=== PATIENT | female | born 1945 | race Caucasian/White ===

== ENCOUNTER 2017-05-26 15:34 | Emergency (ER) | payer MEDICARE ==
[~2017-05-26] VITALS: Ht 180.3 cm; Wt 100.0 kg
[~2017-05-26 15:34] MED LIST: ALPR.25 PO; FORT600S SQ; LORT5TAB PO; OXYC1SOL5 PO; PRAM0.25 PO; RIVA10 PO; ROSU10 PO; SERT-129 PO; TRAM50TA PO; VITA200017 PO; Z.0.COMMODE-3:1; Z.0.WALKERFRONT
[2017-05-26 15:41] VITALS: BP 172/77; PULSE 71; RESP 16; TEMP 97.7; O2SAT 95
[2017-05-26] MEDS ORDERED: ALPR.25 PO (15:54)
[2017-05-26] MEDS ORDERED: ZOLO100T PO (15:54)
[2017-05-26] MEDS ORDERED: TETANUS/DIPHTHERIA TOXOID ADULT 0.5 ML VIAL IM ONE (16:30)
--- NOTE | 2017-05-26 16:49 | PD ---
HPI . Injury to left hand Chief Complaint: Laceration/Skin Injury Time Seen by Provider: 15:55 Travel History International Travel<30 days: No Contact w/Intl Traveler<30days: No Traveled to known affect area: No History of Present Illness HPI 72-year-old female presents emergency department for evaluation of lacerations she sustained to her left hand with a table saw. The injuries occurred approximately 30 minutes prior to arrival. Patient is not sure she is up-to- date on her tetanus. Patient's tetanus will be updated at this time. Patient denies any fevers, chills, malaise, abdominal pain, lightheadedness, vomiting or diarrhea. Patient is otherwise healthy with no major medical history. Patient does not typically take any daily medications but is on amoxicillin following a dental procedure at this time. PFSH Past Medical History Anemia: Yes Blood Disorders: No Cancer: No Cardiovascular Problems: No Chemotherapy: No Diabetes: No Diminished Hearing: No Endocrine: No Gastrointestinal Disorders: No Genitourinary: No Hepatitis: No Hiatal Hernia: No Hypertension: No Immune Disorder: No Medical other: Yes (HIGH CHOLESTEROL) Musculoskeletal: Yes (ATHRITIS, LOWER BACK, LEFT HIP) Neurologic: No Psychiatric: Yes (ANXIETY, DEPRESSION) Reproductive: No Respiratory: No Radiation Therapy: No Thyroid Disease: No Tetanus Vaccination: > 5 Years ?: Not : 3 Para: 0 Miscarriage: 0 : 3 Tubal Ligation: Yes Past Surgical History Abdominal Surgery: No AICD: No Arteriovenous Shunt: No Body Medical Devices: NONE Cardiac Surgery: No Ear Surgery: No Endocrine Surgery: No Eye Surgery: Yes (RK ) Genitourinary Surgery: No Gynecologic Surgery: Yes (TUBAL) Insulin Pump: No Joint Replacement: No Neurologic Surgery: Yes (KYPHOPLASTY LUMBAR) Oral Surgery: No Pacemaker: No Thoracic Surgery: No Other Surgery: Yes (TUBAL LIGATION) Social History Alcohol Use: Yes (1 DRINK PER WEEK) Tobacco Use: No Substance Use: No Allergies-Medications (Allergen,Severity, Reaction): Coded Allergies: lidocaine (Unverified Allergy, Severe, PASS OUT, 05/26/17) ACTUAL ALLERGY NOVACAINE procaine (Unverified Allergy, Unknown, GENERIC FOR NOVOCAIN, 05/26/17) Uncoded Allergies: NOVOCAIN (Allergy, Mild, 05/07/06) Reported Meds & Prescriptions Reported Meds & Active Scripts Active Cephalexin 500 Mg Cap 500 Mg PO QID 5 Days Reported Zoloft (Sertraline HCl) 100 Mg Tab 100 Mg PO DAILY Xanax (Alprazolam) 0.25 Mg Tab 0.25 Mg PO HS PRN Review of Systems Except as stated in HPI: all other systems reviewed are Neg Physical Exam Narrative GENERAL: Well-nourished, well-developed 72-year-old female patient in no acute distress. SKIN: Avulsion wound to distal aspect of left third digit. A small laceration noted to lateral portion of the nail on the distal aspect of the fourth digit on the left hand. A small laceration noted to the lateral aspect of the nail on the distal aspect of the second digit on the left hand. HEAD: Normocephalic. Atraumatic EYES: No scleral icterus. No injection or drainage. NECK: Supple, trachea midline. No JVD or lymphadenopathy. CARDIOVASCULAR: Regular rate and rhythm without murmurs, gallops, or rubs. RESPIRATORY: Breath sounds equal bilaterally. No accessory muscle use. GASTROINTESTINAL: Abdomen soft, non-tender, nondistended. MUSCULOSKELETAL: No cyanosis, or edema. BACK: Nontender without obvious deformity. No CVA tenderness. Data Data Last Documented VS Vital Signs Date Time Temp Pulse Resp B/P (MAP) Pulse Ox O2 Delivery O2 Flow Rate FiO2 05/26/17 15:41 97.7 71 16 172/77 (108) 95 Orders Orders Tetanus/Diphtheria Tox Adult (Tetanus/Di (05/26/17 16:30) Hand, Complete ([id number]) (05/26/17 17:01) Wound Care (05/26/17 17:37) Support Splint (05/26/17 17:37) MDM Medical Decision Making Medical Screen Exam Complete: Yes Emergency Medical Condition: Yes Differential Diagnosis Differential diagnoses include but not limited to cellulitis, laceration repair , avulsion wound Narrative Course 72-year-old female presents emergency department for evaluation after sustaining an injury to her left hand from a table saw. Patient's hand will be soaked and irrigated. Patient's tetanus will be updated. X-ray right hand ordered and pending. X-ray shows possible subtle fracture on the third digit of the distal tuft. Skin on third digit of left hand is macerated at the distal portion. No definitive laceration is noted. Wound care will be performed to the wounds on left hand including avulsion wound on the third digit and the lacerations on the second and fourth digit. Based on patient's symptoms, clinical presentation, radiological results, vital sign review and physical exam it is not necessary to admit the patient to the hospital or keep the patient in the emergency department for further evaluation. Patient will be given a prescription for Keflex and discharged home with a finger splint on left third digit. Diagnosis Primary Impression: Laceration of right hand Qualified Codes: S61.411A - Laceration without foreign body of right hand, initial encounter Referrals: Hand Surgeon Orthopedist Patient Instructions: Acute Wound Care (GEN), Acute Wounds (ED), General Instructions Additional Instructions: Please return to emergency department if your symptoms return or worsen. Follow up with your primary care provider. Keep wound clean and dry. Follow-up with a hand specialist. Take medications as prescribed. Med/Other Pt SpecificInfo: Prescription(s) given Scripts Cephalexin (Cephalexin) 500 Mg Cap 500 MG PO QID for Infection for 5 Days, CAP 0 Refills Prov: Annette Barron 05/26/17 Disposition: DISCHARGE HOME Condition: Stable Annette Barron May 26, 2017 16:49
[2017-05-26] MEDS ORDERED: CEPH500C PO (17:33)
--- NOTE | 2017-05-26 17:33 | RADRPT ---
EXAM DATE/TIME: 05/26/2017 17:07 [facility] COMPARISON: No previous studies available for comparison. INDICATIONS : Laceration to right hand, 3rd and 4th digits. MEDICAL HISTORY : None. SURGICAL HISTORY : None. ENCOUNTER: Initial ACUITY: 1 day PAIN SCORE: 6/10 LOCATION: Right hand, 3rd and 4th digits. FINDINGS: Mild soft tissue prominence overlying the third and fourth distal digits. There is a small osseous fr agment seen distal to the third tuft which may reflect a small tuft fracture. Osseous structures are otherwise intact. No radiopaque foreign body or subcutaneous emphysema. CONCLUSION: 1. Possible subtle distal third tuft fracture. Jose Luis Ho MD on May 26, 2017 at 17:30 Board Certified Radiologist. This report was verified electronically.
== END 2017-05-26 18:19 | disposition home or self-care (01) ==
LOC: PHEFT 15:34
DX: S61.412A Laceration without foreign body of left hand, initial encounter (principal); D64.9 Anemia, unspecified; W31.2XXA Contact with powered woodworking and forming machines, initial encounter; Z23 Encounter for immunization
CPT/HCPCS: 29130; 73130; 90471; 90714